=== PATIENT | male | born 1995 | race Caucasian/White ===

== ENCOUNTER 2020-05-15 10:28 | Emergency (ER) | payer SELFPAY ==
[~2020-05-15] VITALS: Ht 172.7 cm; Wt 81.8 kg
[2020-05-15 10:46] VITALS: BP 112/48
[2020-05-15] MEDS ORDERED: erythromycin ophthalmic ointment 1gm tube LEFTEYE ONE (10:55)
== END 2020-05-15 11:19 | disposition home or self-care (01) ==
LOC: ER 10:30
DX: H00.014 Hordeolum externum left upper eyelid (principal); H57.12 Ocular pain, left eye; F19.90 Other psychoactive substance use, unspecified, uncomplicated; Z59.0 Homelessness; Z72.89 Other problems related to lifestyle
CPT/HCPCS: 99283